=== PATIENT | male | born 1990 | race Caucasian/White ===

== ENCOUNTER 2019-01-01 13:07 | Emergency (ER) | payer BC ==
[2019-01-01] MEDS ORDERED: CEFAZOLIN 1 GM VIAL ONE (13:29)
[2019-01-01] MEDS ORDERED: Fentanyl 100 MCG/2 ML VIAL ONE ×2 (13:29→15:30)
[2019-01-01] MEDS ORDERED: Bupivacaine 0.5% 10 ML VIAL ONE (13:34)
[2019-01-01] MEDS ORDERED: Adacel (T-DAP) 0.5 ML SYRINGE ONE (13:42)
--- NOTE | 2019-01-01 14:06 | RAD ---
RADIOGRAPH RIGHT HAND 3 VIEWS: DATE: 01/01/2019. HISTORY: A 28-year-old male status post traumatic injury to right hand. 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 There is prominent soft tissue defect with flap, distal to the 3rd distal tuft. No fracture of the third distal tuft. The r est of the bones are intact. No dislocation. IMPRESSION: 1. 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 2. Soft tissue injury at distal tip of 3rd digit without adjacent osseous injury of the 3rd distal t uft. POS: JENNY
== END 2019-01-01 15:37 | disposition short-term general hospital (02) ==
LOC: ERS 13:07
DX: S68.011A Complete traumatic metacarpophalangeal amputation of right thumb, initial encounter (principal); K21.9 Gastro-esophageal reflux disease without esophagitis; F17.200 Nicotine dependence, unspecified, uncomplicated; Z79.899 Other long term (current) drug therapy; W22.8XXA Striking against or struck by other objects, initial encounter
CPT/HCPCS: 90471; 90715; 96361; 96365; 96375; 96376; J0690; J3010; J3490